=== PATIENT | female | born 1995 | race African-American/Black ===

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

== ENCOUNTER → 2017-01-29 | Outpatient (CLI) | payer OTHER ==
--- NOTE | 2017-01-29 10:20 | DIAGNOSTIC IMAGING REPORT ---
CERVICAL SPINE 2 OR 3 VIEWS CLINICAL HISTORY: M54.2 Anterior neck [id number] COMPARISON STUDY: No previous studies for comparison. FINDINGS: There is straightening of normal cervical lordosis. No fractures or subluxations are visualized. No destructive lesions are evident. There is no significant disc space narrowing. IMPRESSION: Straightening of the normal cervical lordosis. Otherwise unremarkable conventional radiographic evaluation of the cervical spine. Electronically signed by: Shmuel Marley M.D. 01/29/2017 10:19 AM Dictated Date/Time: 01/29/2017 10:18 AM
[2017-01-29 12:10] LABS: BASO % 0.3 %; BASO ABS # 0.02 K/uL (0-0.2); COMPLETE YES; EOS % 0.6 %; HEMATOCRIT 39.1 % (37-47); IG% 0.1 %; LYMPH % 29.4 %; LYMPH ABS # 2.08 K/uL (1.2-3.4); MEAN CORPUSCULAR HEMOGLOBIN 26.7 pg (25-34); MEAN CORPUSCULAR HGB CONC 33.8 g/dl (32-36); MONO % 7.1 %; NEUT % 62.5 %; PLATELET COUNT 303 K/uL (130-400); RED BLOOD COUNT 4.95 M/uL (4.2-5.4); WHITE BLOOD COUNT 7.08 K/uL (4.8-10.8)
[2017-01-29 12:35] LABS: C-REACTIVE PROTEIN < 0.29 mg/dl (0-0.29)
== END | disposition home or self-care (01) ==
LOC: C.RAD1850 09:51
PROVIDERS: ATTEND Pediatrics
DX: M54.2 Cervicalgia (principal); R93.7 Abnormal findings on diagnostic imaging of other parts of musculoskeletal system

== ENCOUNTER → 2017-02-19 | Outpatient (CLI) | payer OTHER ==
--- NOTE | 2017-02-19 09:29 | DIAGNOSTIC IMAGING REPORT ---
SOFT TISS HEAD/NECK-THYROID CLINICAL HISTORY: 21 years-old Female presenting with M54.2 Anterior neck [id number] FEMALE WHO HAD TONGUE PIERCING. TECHNIQUE: Real-time grayscale and color Doppler ultrasound imaging of the thyroid and base of the neck was performed. COMPARISON: None. FINDINGS: Right lobe: Normal echogenicity and echotexture. The right lobe of the thyroid measures 1.1 x 4.4 x 1.2 cm. No nodules. No parenchymal hyperemia. Left lobe: Normal echogenicity and echotexture. The left lobe of the thyroid measures 1.2 x 3.5 x 1.2 cm. No nodules. No parenchymal hyperemia. Isthmus: The isthmus measures 3 mm in thickness. No nodules. Other: Prominent but benign-appearing cervical lymph nodes bilaterally. Several of these correlate to the clinical area of tenderness. No sonographic evidence of associated inflammatory change. IMPRESSION: 1. Normal thyroid ultrasound. 2. Prominent benign-appearing cervical lymph nodes. Several correlate with the site of tenderness on exam. These are likely reactive. Electronically signed by: Adams Mukherjee M.D. 02/19/2017 9:27 AM Dictated Date/Time: 02/19/2017 9:26 AM
== END | disposition home or self-care (01) ==
LOC: C.ULTR 08:37
DX: M54.2 Cervicalgia (principal)

== ENCOUNTER → 2017-09-14 | Outpatient (CLI) | payer OTHER ==
[2017-09-14 16:55] LABS: HEP C IGG 13 YRS+OLDER_RFLX NEG (NEG)
== END | disposition home or self-care (01) ==
LOC: C.LAB1850 14:43
PROVIDERS: ATTEND Physician Assistant
DX: Z11.3 Encounter for screening for infections with a predominantly sexual mode of transmission (principal)

== ENCOUNTER → 2017-09-14 | Outpatient (CLI) | payer OTHER | END | disposition home or self-care (01) | LOC: C.LABSPEC 16:05 | PROVIDERS: ATTEND Physician Assistant | DX: Z11.3 Encounter for screening for infections with a predominantly sexual mode of transmission (principal) ==

== ENCOUNTER 2017-12-23 15:52 | Emergency (ER) | payer OTHER ==
[~2017-12-23] VITALS: Ht 154.9 cm; Wt 45.8 kg
[2017-12-23 15:57] VITALS: TEMP 36.8; Ht 154.9 cm; Wt 45.8 kg
[2017-12-23 16:45] VITALS: BP 107/69; PULSE 88; O2SAT 98
--- NOTE | 2017-12-23 19:44 | EMERGENCY ROOM VISIT NOTE ---
History First contact with patient: 16:26 Chief Complaint: THROAT PAIN/INJURY Stated Complaint: BLEEDING OF THE THROAT, S/P SURGERY History of Present Illness The patient is a 22 year old female who presents to the Emergency Room with her mother with complaints of vomiting blood today. Patient reports that she had her tonsils removed yesterday by Dr. Stephenson. The patient reports that the blood was not bright red in color, nor did it appear like coffee grounds. After vomiting, the patient has not had any additional blood draining down the throat, nor has she had to spit anything out. She reports generalized throat discomfort from the surgery. The mother called the ENT office and was directed to the emergency department for reevaluation. Review of Systems 10 system review was performed and was negative except for pertinent positives and negatives as indicated in history of present illness Past Medical/Surgical History Medical Problems: (1) No active medical problems Family History Hypertension Social History Smoking Status: Never Smoker Alcohol Use: none Marital Status: single Housing Status: lives with family Occupation Status: employed Current/Historical Medications No Active Prescriptions or Reported Meds Physical Exam Vital Signs Date Time Temp Pulse Resp B/P (MAP) Pulse Ox O2 Delivery O2 Flow Rate FiO2 12/23/17 16:45 88 18 107/69 98 12/23/17 16:02 98 Room Air 12/23/17 15:57 36.8 92 16 101/63 98 Room Air Physical Exam CONSTITUTIONAL: Healthy and well nourished. Alert and oriented X 3 with positive affect. Patient does not appear in any acute distress. HEENT: Normocephalic, atraumatic. Pupils equal, round and reactive. OROPHARYNX: Examination of bilateral tonsillar beds does not show any active hemorrhage or bleeding. No obvious swelling along the floor of the mouth, and no evidence for retropharyngeal swelling. Patient is able to swallow. NECK: Full active range of motion without discomfort. No soft tissue fullness of the neck. RESPIRATORY: Clear to auscultation bilaterally with no wheezing, crackles, rhonchi or stridor. CARDIOVASCULAR: Regular rate and rhythm with no murmurs, rubs or gallops. GASTROINTESTINAL: Bowel sounds present in all quadrants. No epigastric tenderness to palpation. MUSCULOSKELETAL: Full range of motion of all joints without discomfort. INTEGUMENTARY: No rash or other significant dermatologic conditions noted. NEUROLOGIC: No focal neurologic deficits noted. Medical Decision & Procedures ED Course Patient history and physical exam were performed. Nurse's notes were reviewed. Vital signs were reviewed and normal. The patient does not appear in any acute distress. She reports that she has not had any recurrent vomiting except for her one time vomiting. She also denies any bleeding in the back of her throat, nor is she spitting any blood now. Examination does not show any active hemorrhage or bleeding. At this point, the patient was encouraged to continue with her postoperative care, and contact her ENT office as needed. If the patient does start to develop bleeding, she was instructed to gargle with ice water and hydrogen peroxide in a solution of 5-1 mix. Return to the emergency department for uncontrollable bleed. The patient and mother were happy with plan of care, and the patient rated her discomfort a 5 out of 10 at the time of discharge. She refused any analgesics while in the emergency department. Medical Decision I suspect the patient's hematemesis was likely from normal postoperative bleed. She has no active bleeding from the tonsillar beds. I do not feel that urgent ENT consultation is needed. Medication Reconcilliation Current Medication List: was personally reviewed by me Blood Pressure Screening Patient's blood pressure: Normal blood pressure Impression Primary Impression: Hematemesis Additional Impression: Status post tonsillectomy Departure Information Dispostion Home / Self-Care Condition GOOD Prescriptions No Active Prescriptions or Reported Meds Forms HOME CARE DOCUMENTATION FORM, IMPORTANT VISIT INFORMATION Patient Instructions [facility] Additional Instructions If you develop any tonsillar bleeding, gargle with a solution of ice water and hydrogen peroxide (5 parts water, 1 part hydrogen peroxide). Return to the emergency department for any worsening bleed. Contact your ENT as needed for any persistent mild bleeding. Problem Qualifiers Primary Impression: Hematemesis Nausea presence: with nausea Qualified Codes: K92.0 - Hematemesis
== END 2017-12-23 16:50 | disposition home or self-care (01) ==
LOC: C.EDB 15:53 → C.EDA 16:50
DX: K92.0 Hematemesis (principal); Z98.890 Other specified postprocedural states